=== PATIENT | female | born 1955 | race Caucasian/White ===

== ENCOUNTER → 2021-03-28 13:00 | Outpatient (CLI) | payer MEDICARE, OTHER, SELFPAY ==
[2021-03-28 17:59] LABS: COVID19 -Nasal RAPID Negative (Negative)
== END ==
PROVIDERS: Family Provider Family Medicine; PCP Family Medicine; Visit Provider Nurse Practitioner Family
DX: Z20.822 Contact with and (suspected) exposure to COVID-19 (principal)
CPT/HCPCS: 87635; C9803

== ENCOUNTER 2021-03-29 05:51 | Day surgery (SDC) | payer MEDICARE, OTHER, SELFPAY ==
[2021-03-23 10:00] VITALS: BMI 33.3
[2021-03-29] VITALS (15 sets, daily range): BP systolic 85–151; BP diastolic 55–83; PULSE 54–98; RESP 10–20; TEMP 36.3–37; O2SAT 95–100; BMI 33.3
--- NOTE | 2021-03-29 | DI.RAD.S_ITS ---
PROCEDURE: XR HIP W PEL IF DONE RT 2V INDICATIONS: RIGHT ANTERIOR HIP TECHNIQUE: AP pelvis and lateral view of the right hip acquired. COMPARISON: None. FINDINGS: Intraoperative fluoroscopic view demonstrates right hip replacement. IMPRESSION: Right hip replacement. Dictated by: Vineet Joyce M.D. on 03/29/2021 at 15:38 Approved by: Vineet Joyce M.D. on 03/29/2021 at 15:39
--- NOTE | 2021-03-29 06:00 | DI.RAD.S_ITS ---
PROCEDURE: XR HIP W PEL IF DONE RT 2V INDICATIONS: MARIA A TECHNIQUE: AP pelvis and lateral view of the left hip acquired. COMPARISON: [facility], CR, XR HIP W PEL IF DONE RT 2V, 03/29/2021, 11:37. [facility], CR, XR PELVIS WITH LATERAL HIP RIGHT, 02/24/2021, 14:03. FINDINGS: Bones: Patient is status post right total hip arthroplasty, with hardware components in expected positions. The hip joint appears congruent. The visualized bony structures appear intact. Soft tissues: Overlying postoperative changes are noted. No suspicious soft tissue densities. IMPRESSION: Status post right hip arthroplasty with expected postoperative findings. Dictated by: Tha Anderson M.D. on 03/29/2021 at 13:33 Approved by: Tha Anderson M.D. on 03/29/2021 at 13:34
[2021-03-29] MEDS: CELECOXIB 200 MG CAPSULE PO (06:55)
[2021-03-29] MEDS: PREGABALIN 75 MG CAPSULE PO (06:55)
[2021-03-29] MEDS: LACTATED RINGERS 1,000 ML 42 ML IV ×2 (07:03→09:52)
[2021-03-29] MEDS: VANCOMYCIN 1,000 MG/200 ML PIGGYBACK 200 MG IV (08:21)
[2021-03-29] MEDS: MIDAZOLAM 2 MG/2 ML VIAL IV (08:44)
--- NOTE | 2021-03-29 08:46 | PM.HP.1 ---
History of Present Illness History of Present Illness Date Patient Seen: 03/29/21 Time Patient Seen: 08:30 Chief complaint: RIGHT TOTAL HIP ARTHROPLASTY *OPB* Narrative: Incapacitating ongoing right hip pain. No other change in her history. She had a minor rash on her ankle which is completely resolved her PCP said it was dry skin. Patient History Medical History Anxiety Asthma Depression Elevated cholesterol Osteoarthritis Panic attacks Rash (02/2021) Surgical History History of 2 sections Family & Social History Social History: household members none Prior Living Arrangements House Safety & Behavioral: Feels Safe in Current Yes Environment Been Physically Hurt or No Threatened By a Person Suicidal Ideation Description None Suicide Plan Description No Plan Tobacco & Substance use: Smoking Status Never smoker alcohol intake current alcohol intake frequency holiday/special occasion Substance Use Type does not use Meds Home Medications and Allergies Home Medications Medication Instructions Recorded Confirmed Type acetaminophen 500 mg tablet 500 mg PO Q4H PRN 03/23/21 03/29/21 History (Acetaminophen Extra Strength) albuterol sulfate 90 mcg/actuation 1 - 2 inh INHALATION BEDTIME 03/23/21 03/29/21 History aerosol inhaler ibuprofen 200 mg tablet 200 mg PO Q4-6H PRN 03/23/21 03/29/21 History Allergies Allergy/AdvReac Type Severity Reaction Status Date / Time metal Allergy Severe Snaps on Uncoded 03/23/21 10:09 pants cause rash, oozing Review of Systems Review of Systems Narrative: No medical issues ongoing hip pain. Exam Vital Signs (past 8 hours): - 03/29/21 06:47 Temperature 97.4 F L Pulse Rate 69 Respiratory Rate 20 Blood Pressure 151/83 H Pulse Oximetry 97 Oxygen Delivery Method Room Air Narrative Exam Narrative: HEENT is benign lungs are clear cor regular rate and rhythm right hip restricted range of motion severe pain with attempted range of motion right hip. Abdomen is soft and benign, neurologically intact distally, skin intact, skin calf soft Objective Labs Labs: Severe right hip osteoarthritis with marked joint space narrowing Assessment & Plan Assessment and plan (1) Hip arthritis: Status: Acute (2) S/P total hip arthroplasty: Status: Acute Assessment & Plan narrative: Severe right hip osteoarthritis. Plan is for right total hip arthroplasty. Procedure alternatives risks benefits and complications reviewed. Time Spent With Patient Time with patient: less than 30 minutes Critical Care time: I spent a total of [] minutes of critical care time on this patient's care today; this time is exclusive of procedural time.
--- NOTE | 2021-03-29 08:52 | P.OP_ITS ---
Operative Date/Time/Diagnoses Date of procedure: 03/29/21 Time of procedure: 09:00 Pre-op diagnosis: Severe right hip osteoarthritis Post-op diagnosis: same Procedure & Clinicians Procedure: Right total hip arthroplasty anterior approach Same procedure as scheduled: Yes Indications: The patient has had progressively worsening right hip pain with radiographic changes consistent with arthritis. Non-operative management has failed and the patient has requested total hip replacement. The risks, benefits and alternatives to surgery were discussed with the patient prior to proceeding. Risks discussed included, but were not limited to, failure to relieve pain, leg length discrepancy, dislocation, stiffness, infection, nerve damage, deep venous thrombosis, pulmonary embolism, stroke, coma, heart attack, permanent paralysis and , as well as the potential need for eventual revision of the prosthetic. Surgeon: Cihka Michael Fittings Tightener: Samia Chiu Anesthesia Type: General and Spinal Operative Notes Findings: Severe right hip osteoarthritis Closure Type: primary Specimen(s): none sent Prosthetic devices, grafts, tissues, transplants, or devices: [employer] anthology standard offset size 5, 52 mm cup, neutral poly liner, 16.5 x 20 mm screw, 36 by -3 Oxinium head Estimated Blood Loss (mL): 250 Blood products transfused: none Procedure in detail: The patient was brought to the operating room. Patient was carefully positioned in the supine position. Time-out was performed and antibiotics were given. Anesthesia was induced. She was positioned in the on the table in order to allow hyperextension of the hip. The right lower extremity was prepped and draped in a standard sterile fashion. An anterior right hip incision was made 1 fingerbreadth lateral to the anterior superior iliac spine and extended distally towards the greater trochanter. Dissection was carried out through skin and subcutaneous tissues. Superficial hemostasis was achieved. The fascia over the tensor fascia elen was defined and incised with a knife. Two Allis clamps were used to grasp the fascia. Tensor fascia elen was retracted laterally. A gelpi retractor was placed. Dissection was carried out down along the neck. The circumflex vessels were carefully identified and cauterized with the Aqua Mantis. There was good visualization of the femoral neck. A Cobra was placed superior to the neck and the gluteus fibers were carefully stripped from that superior aspect of the capsule. A 2nd retractor was placed along the inferior aspect of the neck. The rectus insertion along the capsule was partially released. A 3rd retractor that was then gently placed over the rim of the acetabulum under the rectus. Capsule was carefully incised and released from the intertrochanteric line circumferentially superior to the mid sagittal line and inferiorly to the mid sagittal line until the lesser trochanter was palpable. A tag stitch was placed both in the superior and inferior limb of the capsular insertion. Along the acetabulum capsule was also released up to the mid sagittal 12:00 position. A portion of the labrum was resected. A saw was used to perform an osteotomy at the level of the intertrochanteric line and the junction of the superior femoral neck leaving approximately 1 finger breath of residual inferior neck above the lesser trochanter. A 2nd cut was made along the femoral neck at the base of the head and a napkin ring of neck was removed. Corkscrew was placed in the femoral head and the head was removed without difficulty. Retractors were then repositioned around the acetabulum. Residual labrum was resected and additional osteophytes were removed. A reamer that was 4 mm below the templated size was placed by hand in the acetabulum and it was reamed to centralize the acetabulum. It was then reamed up to 2 under the templated size and fluoroscopy was brought in to confirm the position of the reaming and depth of reaming. I reamed 1 under the anticipated size. A trial cup was placed and noted that it was appropriately sized and fluoroscopy confirmed position and depth. The component was open and inserted without difficulty fluoroscopic imaging was used to confirm that the cup had been adequately seated and was well positioned. It was further stabilized with a screw. Neutral poly liner was placed. The cup was tested and noted to be stable. Attention was then directed to the femur. The femur was gently hyperextended additional capsular release was performed as needed in order to allow adequate visualization of the proximal femur with elevation of the femur. Patient was placed in a hyperextended slightly adducted position with maximum external rotation. Box osteotome was used to check for any residual neck as well as sclerotic bone along the trochanter. [place] pepper was placed in the femur. Additional broaching was performed. Canal finder was used to determine the alignment of the canal and position. Size 1 broach was placed. The canal was then appropriately broached up to the templated size as long as there was adequate stability of the broach and serial advancement of the broach without excessive impingement. Specific attention was directed at avoiding varus attempting to direct the distal aspect of the broach more anteriorly and avoiding excessive anteversion. Trial reduction showed acceptable range of motion, good stability, no posterior impingement, mormon of leg length and appropriate lateral shuck. I also hyperflexed the hip and checked that there was no impingement anteriorly and there was good stability with flexion, adduction and internal rotation. Marcaine and Exparel were injected. The stem was placed without difficulty. Repeat trial reduction and x-ray showed acceptable overall position, length, and no evidence of the femoral fracture. Final head was placed. Wound was meticulously irrigated with normal saline. The hip was reduced and additional Exparel and Marcaine were injected. The capsule was closed with interrupted nonabsorbable sutures. The fascia of the tensor was closed with interrupted and running Vicryl. No drain was placed. Any tensor fascia elen muscle that appeared to be contused or injured which was a minimal amount was carefully resected. Capsule around the tensor was injected with Exparel and Marcaine. The skin was closed with barbed stitches for the subcutaneous tissue and skin. We also used surgical glue. The wound was dressed sterilely. Brief Betadine soak was also used and was meticulously irrigated with normal saline. Patient was transferred to recovery room in satisfactory condition. Complications: none Post-operative Condition: stable Disposition: Acute Care Plan for aftercare: The patient will be maintained on a standard total hip replacement protocol with weight bearing as tolerated and anterior hip precautions. The patient will receive Aspirin and sequential compression devices for DVT prophylaxis. The patient will be discharged home when safe for the home environment.
[2021-03-29] MEDS: CEFAZOLIN 2 GM/20 ML SYRINGE IV ×2 (09:09→17:13)
[2021-03-29] MEDS: TRANEXAMIC ACID 1,000 MG VIAL 2000 MG INJ ×2 (09:12→11:45)
[2021-03-29] MEDS: BUPIVACAINE LIPOSOME 266 MG/20 ML VIAL INJ (09:45)
[2021-03-29] MEDS: BUPIVACAINE 0.25% (PF) 60 ML, EPINEPHrine 0.3 MG INJ (09:46)
[2021-03-29] MEDS: SODIUM CHLORIDE IRRIG SOLUTION 250 ML, POVIDONE-IODINE SPONGE STICKS 1 APPLIC IRR (09:46)
--- NOTE | 2021-03-29 09:55 | SUR.OPER ---
Addendum entered by Amanda Lanza R.N. 03/29/21 12:24: Bilateral Hearing aids remained in patient ears, seen by COMPUTER ANIMATOR. Addendum entered by Amanda Lanza R.N. 03/29/21 10:00: Patients glasses placed in [facility] designated glass pouch and placed in patients belongings bag in pre-op. Bilateral Hearing Aids left in patients ears per Anesthesia. Original Note: Patient supine on padded [place] table, head on pillow, one arm on padded arm board at <90, other arm padded and secured with tape across patient's chest, both legs secured in padded traction boots and positioned per surgeon, bilateral feet/ankles/lower leg wrapped with cast padding and coban then placed in padded traction boots, padded post at patient's groin, pressure points checked and padded.
[2021-03-29] MEDS: fentaNYL 100 MCG/2 ML INJ IV (12:28)
[2021-03-29] MEDS: LACTATED RINGERS 1,000 ML 125 ML IV ×2 (13:40→22:12)
[2021-03-29] MEDS: IBUPROFEN 400 MG TABLET PO ×3 (13:56→20:25)
[2021-03-29] MEDS: ONDANSETRON 4 MG/2 ML INJ IV (13:56)
[2021-03-29] MEDS: ACETAMINOPHEN 325 MG TABLET 650 MG PO ×2 (14:15→20:26)
--- NOTE | 2021-03-29 14:25 | PT.IIE ---
Current Diagnoses Unilateral primary osteoarthritis, unspecified hip (03/29/21) Unilateral primary osteoarthritis, right hip (03/29/21) Presence of unspecified artificial hip joint (03/29/21) Surgery Performed Operation Date: 03/29/21 07:45 Actual Procedures p Total Hip Arthroplasty/Anterior Approach(Right) - Chika Michael MD Medical History (Last Reviewed 03/29/21 @ 08:48 by Chika Michael MD) Anxiety Asthma Depression Elevated cholesterol Osteoarthritis Panic attacks Rash (02/2021) Physical Therapy Inpatient Evaluation/Re-Eval M1 PT/OT-IP Prior Functional Status Start: 03/29/21 15:24 Freq: NEEDED Status: Active Protocol: Document 03/29/21 14:25 AB (Rec: 03/29/21 15:39 AB [id number]) Medical Review Prior Functional Status Medical History Reviewed Yes Communication able to make needs know; needs time to respond to questions and follow instructions Mobility and Gait pt stated that she is modified independent with all mobilities and ambulation using SPC Social History Household Members none Living Arrangements House Number of Floors (Floors) One Floor Number of Stairs To Enter/Railing? 3 steps without rails to enter the house Home Environment Standard Height Toilet,Tub/ Shower Home Equipment Front Wheel Walker,Straight Cane,Shower Seat without Backrest,Hand Held Shower,Grab Bars In Shower Additional Social History Comment pt's 2 daughter will be staying with pt to assist her upon d/c M2 PT-IP Current Condition Start: 03/29/21 15:24 Freq: NEEDED Status: Active Protocol: Document 03/29/21 14:25 AB (Rec: 03/29/21 15:39 AB [id number]) Physical Therapy Current Condition Current Condition Evaluation Date 03/29/21 Treatment Diagnosis s/p R MARIA A anterior approach; difficulty in walking Onset Date 03/29/21 M3 PT-IP Subjective Start: 03/29/21 15:24 Freq: NEEDED Status: Active Protocol: Document 03/29/21 14:25 AB (Rec: 03/29/21 15:39 AB [id number]) Subjective Physical Therapy Visit Type Type Initial Evaluation Visit Start Time 14:25 Visit Stop Time 15:10 Total Visit Minutes 45 Number of WEED BURNER Visits 0 Physical Therapy Visit Comments Patient Comments pt is agreeable to do PT Therapy Pain Assessment Pain When Pain Assessed At Rest Pain Present Pain Present Pain Reported Location Right Hip Intensity 4 Scale Used Numeric (0 - 10) Pain Management Techniques Apply Cold,Distraction, Modification of Treatment,Re- positioning,Timing of Activity with Medications M4 PT-IP Mobility and Gait Start: 03/29/21 15:24 Freq: NEEDED Status: Active Protocol: Document 03/29/21 14:25 AB (Rec: 03/29/21 15:39 AB [id number]) PT-Bed Mobility Assessment Supine to Sit Supine to Sit Moderate Assistance,1 Person Assistance Sit to Supine Sit to Supine Moderate Assistance,1 Person Assistance Scooting Scooting to Edge of Bed Moderate Assistance PT-Transfer Assessment Sit to and From Stand Sit to and from Stand Moderate Assistance,1 Person Assistance,Use of Upper Extremities Equipment Transfer Assistive Device Gait Belt,Front Wheeled Walker Orthotic/Prosthetic Devices or Brace: No Comments Mobility Comments educated pt on anterior hip precautions. daughter in room . BP in supine: 132/67. pt completed supine to sit mod A and cues. able to sit on EOB SBA. BP in sittin/65. pt sat for a few minutes. pt with delayed response to questions and instructions. BP checked again: 121/67. completed sit to stand mod A and cues. pt requiring mod A for static standing balance using FWW. presents with increase L knee flexion during standing and increase UE weight bearing and more weight shifted to the L. cued pt for R quads activation. able to take one step forward but pt has difficulty following directions. instructed pt to step back and side steps towards HOB and completed mod to max A and max cues using fWW. pt completed sit to supine mod A with LE elevation . positioned pt in bed. call light and table placed within reach. BP checked: 100/65. caregiver training set up for tomorrow at ~ 1030 am. Gait Assessment Gait Gait Assistance Required: Moderate Assistance,Maximum Assistance,1 Person Assist Distance (Feet) 3 Able to Maintain Weight Bearing Status No During Gait Assistive Devices Assistive Device Gait Belt,Front Wheeled Walker Orthotic/Prosthetic Devices or Brace: No Gait Deviations General Gait Pattern Decreased Stride Length, Decreased Feet Clearance Factors Limiting Gait Function Factors Limiting Gait Function Decreased Activity Tolerance, Decreased Strength,Difficulty Following Directions,Limited Range of Motion,Pain,Poor Balance,Poor Safety Awareness Comments Gait Comments pls see mobility section for details PT-Balance Assessment Sitting Balance and Reactions Dynamic Sitting Balance Ability Fair Standing Balance and Reactions Static Standing Balance Ability Poor Dynamic Standing Balance Ability Poor Device Used FWW M5 PT-IP Objective Assessments Start: 03/29/21 15:24 Freq: NEEDED Status: Active Protocol: Document 03/29/21 14:25 AB (Rec: 03/29/21 15:39 AB [id number]) Orientation Orientation/Cognition Level of Alertness Alert Orientation Name,Place,Situation Safety Awareness Decreased Safety Awareness Strength Lower Extremity Strength Assessment Right Impaired Hip 3-/5 Knee 3+/5 Coordination Assessment Gross Coordination Gross Coordination WNL Sensation Assessment Sensation Gross Sensation WNL Muscle Tone Muscle Tone WNL Yes M6 PT-IP Treatment Start: 03/29/21 15:24 Freq: NEEDED Status: Active Protocol: Document 03/29/21 14:25 AB (Rec: 03/29/21 15:39 AB [id number]) Physical Therapy Treatment Education Education Provided Precautions,Weight Bearing Status,Post-Op Packet,Safety M7 PT-IP Assessment and Plan Start: 03/29/21 15:24 Freq: NEEDED Status: Active Protocol: Document 03/29/21 14:25 AB (Rec: 03/29/21 15:39 AB [id number]) PT Summary Assessment and Plan Potential Rehabilitation Potential Good Status of Condition at Evaluation Evolving Summary Impairments Pain,ROM,Strength,Balance, Coordination,Sensation,Tone, Cognition,Bed Mobility, Transfers,Gait,Activity Tolerance Assessment Summary pt requiring mod to max A with mobility using FWW and unable to tolerate much activity with decrease in BP from 132/ 67 to 100/65. pt also has delayed responses to instructions affecting safety. caregiver training set up for tomorrow with daughter coming at ~ 1030. will continue to assess progress. pt also need to complete stair climbing training prior to d/ c. Goals Bed Mobility Goal Standby Assistance Transfer Goal Standby Assistance,Front Wheeled Walker Gait Goal Standby Assistance,Front Wheel Walker Gait Distance 200 Other Goals up/down 3 steps SPC/DEFENCE INTELLIGENCE ANALYST min A Days to Meet Goals 5 Frequency of Treatment Frequency Of Treatment Twice a Day Treatment Plan Physical Therapy Treatment Plan Bed Mobility Training,Transfer Training,Gait Training, Therapeutic Exercise,Balance Retraining,Post Op Education, Discharge Planning,Hot or Cold Pack,Neuromuscular Re-ed, Coordination Retraining,Manual Therapy Precautions Anterior Hip Precautions No Hip Extension,No Hip External Rotation Weight Bearing Status Weight Bearing Status Weight Bear as Tolerated Allowed Weight Bearing Amount (enter % RLE WBAT or #) (%) Recommendations To Nursing Amount of Assist Needed 2 Person Assist Discharge Recommendations PT Discharge Recommendations Home with 06/11 Assist Available,Home Health Transportation Needs at Discharge Private Vehicle,Wheelchair/ Cabulance
[2021-03-29] MEDS: OXYCODONE IR 5 MG TABLET PO ×2 (14:54→22:15)
[2021-03-29] MEDS: DOCUSATE 100 MG CAPSULE PO (20:25)
[2021-03-29] MEDS: ASPIRIN EC 81 MG TABLET PO (20:25)
[2021-03-30] VITALS: BP 102/46; PULSE 68; RESP 18; O2SAT 96
[2021-03-30] MEDS: CEFAZOLIN 2 GM/20 ML SYRINGE IV (00:04)
[2021-03-30] MEDS: IBUPROFEN 400 MG TABLET PO ×3 (00:05→10:10)
[2021-03-30] MEDS: OXYCODONE IR 5 MG TABLET PO ×2 (06:38→10:10)
[2021-03-30] MEDS: ONDANSETRON 4 MG ODT PO (06:38)
[2021-03-30 06:47] LABS: Hematocrit 30.2 % (36-46); Hemoglobin 10.5 g/dL (12.0-16.0)
[2021-03-30 06:48] VITALS: BP 103/59; PULSE 72; RESP 20; TEMP 36.6; O2SAT 96
--- NOTE | 2021-03-30 08:53 | PC.NURSE ---
Assess- Patient is alert and oriented x3, she has an aquacel dressing to her anterior hip that is cdi. Patient is a one person assist with walker to get up. She denies pain at this time. CMS wnl and patient is able to wiggle her toes and do ankle waves. CMS wnl, sitting up in the chair and eating breakfast.
[2021-03-30 09:14] VITALS: BP 117/61; PULSE 84; RESP 20; TEMP 36.6; O2SAT 95
--- NOTE | 2021-03-30 09:37 | CM.DANOTE ---
Patient is a 65 yo female who was admitted on 03/29/21 for RTHA. Pt has M[employer] and [employer] for insurance and her PCP is Leonides Hines. EMR was reviewed. Per Ortho MD, pt tolerated procedure well and likely can d/c home later today after further PT. Per PT yesterday, recommending safe d/c home with Dtrs 24/7 and HH. SW met bedside with pt and explained role and she confirms that she lives in [place] alone and is active and independent at baseline and has even been attempting the ladder to get leaves out of her gutters. Pt drives and denies any hx of HH or SNF. Pt confirms that she has two local adult Dtrs who will stay with pt after d/c for 24/7 assist and transport. SW discussed HH services and frequency and pt confirms that she has outpt PT set up already and it is near her home and feels her vehicle will be easy to get in and out of and preference is outpt PT at d/c. Per PT, pt's Dtr will participate in CG training for stairs and confirm pt safe for d/c home today. Plan: SW to follow for plan of home with two adult Dtrs to stay 24/7 and outpt PT today. KINGS Brady Discharge Planning/Care Management CM Discharge Assessment Start: 03/30/21 09:36 Freq: Status: Active Protocol: Document 03/30/21 09:36 BF (Rec: 03/30/21 09:37 BF [id number]) Discharge Planning Assessment Assigned Trash Truck Driver KINGS Howe DPOA/Assigned Designee Name Dtrs Advance Directives? No Advance Directives on File No History Provided By Patient,Medical Record Has Patient been admitted in last 30 No days? Prior Living Arrangements House Household Members none Type of transporation used prior to Drives own vehicle admit Independent with ADL's Yes Is patient alert and oriented? Yes Caregiver for Another No Community Services used prior to Physical Therapy admission: Patient/Family Preference OP PT Therapy Barriers to Discharge No Discharge Plan Home Community Services Physical Therapy Transportation Arrangement Two Dtrs available to transport home today Referrals Initiated None needed Whiteboard Updated in Patient Room with Yes name and ext. # of Trash Truck Driver Review Status In Process Please Provide Date Initial DC 03/30/21 Assessment Was Performed Next Review Type Continued Stay Review Pre-Anesthesia Assessment Start: 03/23/21 10:00 Freq: Status: Complete Protocol: Document 03/23/21 10:00 [facility] (Rec: 03/23/21 10:29 CAB [id number]) Pre-Anesthesia Assessment Diagnostic Results BMP/CMP,CBC,EKG Comment Outside labs/EKGs scanned, COVID screen @ [facility] 03/28/21 Primary Care Provider Leonides Hines Seen Specialist in Last 12 Months Yes Specialist Seen Orthopedist Primary Language Nepali Table Operator Required No Height 157.48 cm Weight 82.554 kg Body Mass Index (BMI) 33.3 Hearing Ability Hard of Hearing,Use of Hearing Aid Visual Assist Contacts,Glasses Dentition Type Teeth, Natural Present Barriers to Learning Auditory Hx Anesthesia Reactions Yes: Spinal w/ caused shortness of breath Hx Family Anesthesia Reaction Yes: Sister-required intubation w/ Hx Malignant Hyperthermia No Hx Blood Transfusions No Anesthesia Review Requested No alcohol intake current alcohol intake frequency holidays/special occasions only Smoking Status Never smoker Substance Use Type does not use Pain Present Pain Reported Musculoskeletal Symptoms Abnormal Gait,Back Pain, Difficulty Walking,Joint Pain History of Falling (Recent or History of No ) Patient is completely paralyzed or No completely immobile Prosthesis or Orthotic Device Cane Mental Status Oriented to own ability Is patient on oxygen? No Does patient have FERRARI/SOB Yes: r/t Asthma Hx Sleep Apnea No Currently Taking a Beta Rose No Hx Chest Pain No Hx SOB Yes: r/t Asthma Hx Syncope or Dizziness No Anti-Coagulant Therapy No Has a Assembler Truck Trailer No Cardiac Testing No Hx Pacemaker/ICD No Pacemaker Rep Required? No Cardiac Clearance Received Not Applicable Diet Type At Home Regular,Low Carb dysphagia No Urinary Catheter Present No Hx Urinary Self Catheterization No Diabetes No Patient No Lactating No Hx Drug Resistant Organism No Presence of External or Internal Medical No Devices Have you had any close contact with No someone diagnosed with COVID-19? Received a COVID vaccine? Yes Received all doses? Yes Marital Status Lives With none Prior Living Arrangements House Number of Floors (Floors) One Floor Support System Child/Children Does the Patient Have Assistance After Yes: Daughters will assist Surgery with care at MD Patient Discharge Plan Description Return Home Comment Pt advised overnight length of stay per surgeon Feels Safe in Current Environment Yes Been Physically Hurt or Threatened By a No Person in Current Environment Do you have thoughts of harming yourself None or others? Are you currently considering suicide? No Do you have a plan to hurt yourself or No Plan others? Do You Have Any Spiritual Beliefs That No May Affect Your HC Choices? Do You Have Any Cultural Practices That No May Affect Your HC Choices? Comment Demetrio Who Can We Speak to About Patient's Care Family, friends Identifying Code for Release of Patient Declilnes to issue Information Health Care Proxy/Next of Kin Mariann (daughter) Health Care Proxy Emergency Contact Name Steph (daughter) Emergency Contact Advance Directives? No Power of Shipping And Receiving No PAC Instructions Do not shave/clip surgical site,Durable medical equipment ,Medications to take/avoid, Nasal antibiotic,No ETOH/ petroleum product on skin DOS, NPO,Pre-surgical wash,Sensory aids,Sturdy shoes/comfortable clothes,Do not bring valuables and remove jewelry
[2021-03-30] MEDS: DOCUSATE 100 MG CAPSULE PO (10:10)
[2021-03-30] MEDS: ACETAMINOPHEN 325 MG TABLET 650 MG PO (10:10)
[2021-03-30] MEDS: ASPIRIN EC 81 MG TABLET PO (10:10)
--- NOTE | 2021-03-30 10:51 | PT.IPTN ---
Current Diagnoses Unilateral primary osteoarthritis, unspecified hip (03/29/21) Unilateral primary osteoarthritis, right hip (03/29/21) Presence of unspecified artificial hip joint (03/29/21) Surgery Performed Operation Date: 03/29/21 07:45 Actual Procedures p Total Hip Arthroplasty/Anterior Approach(Right) - Chika Michael MD Physical Therapy Treatment Note M2 PT-IP Current Condition Start: 03/29/21 15:24 Freq: NEEDED Status: Active Protocol: Document 03/30/21 10:24 SP (Rec: 03/30/21 13:20 SP [id number]) Physical Therapy Current Condition Current Condition Evaluation Date 03/29/21 Treatment Diagnosis s/p R MARIA A anterior approach; difficulty in walking Onset Date 03/29/21 M3 PT-IP Subjective Start: 03/29/21 15:24 Freq: NEEDED Status: Active Protocol: Document 03/30/21 10:24 SP (Rec: 03/30/21 13:20 SP [id number]) Subjective Physical Therapy Visit Type Type Treatment Note Visit Start Time 10:24 Visit Stop Time 10:51 Total Visit Minutes 27 Notes Daughter present completed caregiver training with assist needed throughout tx. Vitals taken during tx: sit in chair: BP 102/59 HR 79, SaO2 91% on RA stand: BP95/52, HR 104 bpm- little nausea but felt wanted to progress gait/ stairs. post mobility: 93/59 HR 76 nonsymptomatic Number of ERP IMPLEMENTATION CONSULTANT Visits 1 Physical Therapy Visit Comments Patient Comments Pt agreeable to assessing further gait and stairs with daughter. Patient Goals Return home with 2 daughters to assist her. Therapy Pain Assessment Pain Present Pain Present Pain Reported Location Right Hip Intensity 4 Scale Used just premedication before tx but willing to work with therapy Description With Movement Pain Behaviors Facial Grimacing Pain Management Techniques Distraction,Modification of Treatment,Re-positioning, Timing of Activity with Medications M4 PT-IP Mobility and Gait Start: 03/29/21 15:24 Freq: NEEDED Status: Active Protocol: Document 03/30/21 10:24 SP (Rec: 03/30/21 13:20 SP [id number]) PT-Transfer Assessment Sit to and From Stand Sit to and from Stand Standby Assistance,Contact Guard Assistance,Use of Upper Extremities Equipment Transfer Assistive Device Gait Belt,Front Wheeled Walker Orthotic/Prosthetic Devices or Brace: No Transfers Transfer Destination Chair,Wheelchair Transfer Technique Stand Step Pivot Transfer Ability Level of Assist Standby Assistance,Use of Upper Extremities Comments Mobility Comments Pt seated in chair when arrived, daughter in room. Caregiver training education on donning gait belt seated, completed. Sit>stand CGA, cued proper hand placement push from chair. Initially nausious coming to standing but brief stand felt better and progressed gait w/ FWW. Ambulated further distance with FWW step to patterning progressed to semi tandem stepping chair in room to stairs lead RLE, extra time required due to decreased strength and activity tolerance with 2 brief stop stand rests SBA, good carry over post cues for marching steps during turns. Completed stairs SPC in LUE and WELT SEWER support Min A from daughter good patterning leading LLE asc/ desc 3 stairs, slow and stable, no LOB. Pt tired and requested sit and assist back to room via w/c. SPT w/FWW and stand>sit with good HP. SPT w /c > chair once inroom sBA w/ FWW. stand>sit sBA good HP and reposition RLE out in front post cues for increased comfort as needed. Assisted pt elevate BLE. She had call light and all needs in reach with daughter inroom before left. Pt stated has outpt therapy already set up. ERP IMPLEMENTATION CONSULTANT recommended assess and log BPs couple times a day for safety awareness and be sure time acclimate position changes for safety lower BP this tx. ERP IMPLEMENTATION CONSULTANT notified nursing of vitals. Gait Assessment Gait Gait Assistance Required: Standby Assistance Distance (Feet) 100 Able to Maintain Weight Bearing Status Yes During Gait Assistive Devices Assistive Device Gait Belt,Front Wheeled Walker Orthotic/Prosthetic Devices or Brace: No Gait Deviations General Gait Pattern Antalgic,Decreased Stride Length,Decreased Feet Clearance,Step-to Gait Factors Limiting Gait Function Factors Limiting Gait Function Decreased Activity Tolerance, Decreased Strength,Limited Range of Motion,Pain Comments Gait Comments See mobility comments Stair Climbing Assessment Evaluation Level of Assist On Stairs Minimal Assistance,1 Person Assistance Devices Stair Climbing Assistive Devices Straight Cane Technique/Endurance Stair Climbing Direction Ascend and Descend Stair Climbing Technique Step to Step Number of Steps Climbed 3 Stair Climbing Set # Repetitions (reps) 1 Comments Stair Climbing Comments see mobility comments PT-Balance Assessment Sitting Balance and Reactions Static Sitting Balance Ability Normal Dynamic Sitting Balance Ability Good Standing Balance and Reactions Static Standing Balance Ability Good Dynamic Standing Balance Ability Fair Device Used FWW M5 PT-IP Objective Assessments Start: 03/29/21 15:24 Freq: NEEDED Status: Active Protocol: Document 03/29/21 14:25 AB (Rec: 03/29/21 15:39 AB [id number]) Orientation Orientation/Cognition Level of Alertness Alert Orientation Name,Place,Situation Safety Awareness Decreased Safety Awareness Strength Lower Extremity Strength Assessment Right Impaired Hip 3-/5 Knee 3+/5 Coordination Assessment Gross Coordination Gross Coordination WNL Sensation Assessment Sensation Gross Sensation WNL Muscle Tone Muscle Tone WNL Yes M6 PT-IP Treatment Start: 03/29/21 15:24 Freq: NEEDED Status: Active Protocol: Document 03/30/21 10:24 SP (Rec: 03/30/21 13:20 SP [id number]) Physical Therapy Treatment Exercises Exercises Ankle Pumps,Gluteal Sets,Quad Sets,Seated Knee Flexion/ Extension Education Education Provided Precautions,Weight Bearing Status,Post-Op Packet,Safety Other Treatments Other Treatment Performed Educated breath and core facilition at times to assist with pain during mobility, continue ROM as can for mobility and strength. M7 PT-IP Assessment and Plan Start: 03/29/21 15:24 Freq: NEEDED Status: Active Protocol: Document 03/30/21 10:24 SP (Rec: 03/30/21 13:20 SP [id number]) PT Summary Assessment and Plan Potential Rehabilitation Potential Good Status of Condition at Evaluation Evolving Summary Impairments Pain,ROM,Strength,Balance, Coordination,Sensation,Tone, Cognition,Bed Mobility, Transfers,Gait,Activity Tolerance Progress Towards Goals Progressing Toward Goals,Slow Progress due to Pain,Slow Progress due to Activity Tolerance Assessment Summary Pt CGA>SBA during transfers and gait approx 100 ft using FWW, Min A 3 step stair mgt SPC LUE/WELT SEWER daughter on R assimulate no HR support at home, stable. Pt is ok to return home with family 06/11 assist available when medically cleared. Goals Bed Mobility Goal Standby Assistance Transfer Goal Standby Assistance,Front Wheeled Walker Gait Goal Standby Assistance,Front Wheel Walker Gait Distance 200 Other Goals up/down 3 steps SPC/WELT SEWER min A Days to Meet Goals 5 Frequency of Treatment Frequency Of Treatment Twice a Day Treatment Plan Physical Therapy Treatment Plan Bed Mobility Training,Transfer Training,Gait Training, Therapeutic Exercise,Balance Retraining,Post Op Education, Discharge Planning,Hot or Cold Pack,Neuromuscular Re-ed, Coordination Retraining,Manual Therapy Other Recommendations and Next Treatment further distance gait, Post op Focus ther ex. Precautions Anterior Hip Precautions No Hip Extension,No Hip External Rotation Other Precautions Good recall to post op precautions, education on carryover to prevent hip ER during turn to R, take small marching steps during pivot turns, good carryover during tx. Weight Bearing Status Weight Bearing Status Weight Bear as Tolerated Allowed Weight Bearing Amount (enter % RLE WBAT or #) (%) Recommendations To Nursing Amount of Assist Needed Standby Assistance,1 Person Assist Discharge Recommendations PT Discharge Recommendations Home with 06/11 Assist Available,Outpatient PT Transportation Needs at Discharge Private Vehicle,Wheelchair/ Cabulance
--- NOTE | 2021-03-30 13:50 | P.DS_ITS ---
History of Present Illness History of Present Illness Date Patient Seen: 03/30/21 Time Patient Seen: 13:50 Chief complaint: Hip pain Narrative: Pain is mild. Denies fever chills. Mild nausea no vomiting. Discharge Providers Provider Discharge Date: 03/30/21 Primary care physician: Leonides Hines MD Consults: 03/29/21 06:00 Consult to Anesthesiology Routine Comment: Consulting Provider: Anesthesiologist Reason for consultation: Regional block for post operative pain control 03/29/21 13:16 Consult to Discharge Planning Routine Comment: Consult to Physical Therapy Evaluate & Treat Comment: Physician Instructions: post op MARIA A protocol Consult to Respiratory Therapy Evaluate & Treat Comment: Physician Instructions: Evaluate and treat Discharge provider: Sav Deng PA-C Summary Hospital Course Discharge Diagnosis: Severe right hip osteoarthritis Hospital Course: Right total hip arthroplasty anterior approach Same procedure as scheduled: Yes Indications: The patient has had progressively worsening right hip pain with radiographic changes consistent with arthritis. Non-operative management has failed and the patient has requested total hip replacement. The risks, benefits and alternatives to surgery were discussed with the patient prior to proceeding. Risks discussed included, but were not limited to, failure to relieve pain, leg length discrepancy, dislocation, stiffness, infection, nerve damage, deep venous thrombosis, pulmonary embolism, stroke, coma, heart attack, permanent paralysis and , as well as the potential need for eventual revision of the prosthetic. Surgeon: Chika Michael Director Of Spa And Guest Experience: Samia Chiu Anesthesia Type: General and Spinal Operative Notes Findings: Severe right hip osteoarthritis Closure Type: primary Specimen(s): none sent Prosthetic devices, grafts, tissues, transplants, or devices: Michael and Nephew anthology standard offset Blood products transfused: none Patient admitted to the hospital for right total hip arthroplasty, anterior approach. Patient taken operating room underwent right total hip arthroplasty March 29, 2021. Patient back in her room recovering well as in stable condition. Exam Vital Signs (past 8 hours): - 03/30/21 06:48 03/30/21 09:14 Temperature 97.9 F 97.9 F Pulse Rate 72 84 Respiratory Rate 20 20 Blood Pressure 103/59 L 117/61 Pulse Oximetry 96 95 Oxygen Delivery Method Room Air Oxygen Flow Rate 0 Narrative Exam Narrative: 65-year-old female in no apparent distress. Dressing is Clean, dry, intact.. Motor functions intact distal bilateral lower extremities. Sensation grossly intact to light touch bilateral lower extremities. Objective Labs Result Diagrams: 03/30/21 06:25 Labs: Laboratory Results - last 24 hr 03/30/21 06:25 Hgb 10.5 L Hct 30.2 L PFSH Medical History Anxiety Asthma Depression Elevated cholesterol Osteoarthritis Panic attacks Rash (02/2021) Surgical History History of 2 sections Social History household members: none Smoking Status: Never smoker alcohol intake: current Discharge Assessment & Plan Assessment and Plan Assessment: Progressing as expected Plan of Treatment: Discharge home in stable condition Discharge Plan Discharge Plan Patient Disposition: Home Discharge orders & Medications Discharge Orders: Discharge (Order); Ordered 03/30/21 Ordered By: Sav Deng Prescriptions: New acetaminophen 325 mg Tablet 650 mg PO TID Qty: 60 0RF aspirin 81 mg Tablet,Delayed Release (Dr/Ec) 81 mg PO BID Qty: 60 0RF docusate sodium 100 mg Capsule 100 mg PO BID Qty: 20 0RF ibuprofen 400 mg Tablet 400 mg PO Q4HR Qty: 60 0RF ondansetron 4 mg Tablet,Disintegrating 4 mg PO Q4HR PRN (Reason: Nausea) Qty: 20 0RF oxycodone 5 mg Tablet 5 mg PO Q3HR PRN (Reason: Pain, Moderate (4-6)) Qty: 60 0RF Continued albuterol sulfate 90 mcg/actuation Hfa Aerosol Inhaler 1 - 2 inh INHALATION BEDTIME 0RF Discontinued acetaminophen [Acetaminophen Extra Strength] 500 mg Tablet 500 mg PO Q4H PRN (Reason: Pain) 0RF ibuprofen 200 mg Tablet 200 mg PO Q4-6H PRN (Reason: Pain) 0RF Follow up/Referrals: Leonides Hines MD [Primary Care Provider] - Chika Michael MD [Physician] - (2 weeks) Diet/Activity/Treatments Diet: Diet as Tolerated Activity: Weight-bearing as tolerated, anterior hip precautions Cold/Heat Therapy: Ice to hip as needed Skin/Wound/Dressing Care Report to your healthcare provider any signs of infection, such as:: chills, fever, increased pain, unusual drainage and unusual redness Dressing: Keep dressing clean and dry Visit Report/Discharge Packet Instructions: DI for Hip Replacement, Oxycodone Stand Alone Forms: Surgery Discharge Discharge Data Primary Care Provider: Leonides Hines Attending Provider: Chika Michael
== END 2021-03-30 13:55 | disposition home or self-care (01) ==
LOC: OR 05:56 → AC 05:58
PROVIDERS: Family Provider Family Medicine; PCP Family Medicine; Referring Provider Family Medicine; Visit Provider Orthopaedic Surgery
PROC: (CPT 27130; principal; 2021-03-29 07:45)
DX: M16.11 Unilateral primary osteoarthritis, right hip (principal); E66.9 Obesity, unspecified; J45.909 Unspecified asthma, uncomplicated; Z68.38 Body mass index [BMI] 38.0-38.9, adult
CPT/HCPCS: 27130; 36415; 73502; 76000; 85014; 85018; 97116; 97162; 97530; C1776; C9290; J0171; J0690; J2250; J2405; J2704; J3010

== ENCOUNTER → 2023-06-11 11:01 | Outpatient (CLI) | payer MEDICARE, OTHER, SELFPAY ==
[2021-03-29 15:00] VITALS: BMI 33.3
[2023-06-11 12:06] LABS: Hemoglobin A1C% w Est Avg Glu 5.2 % (4.0-6.0)
[2023-06-11 12:10] LABS: Add Manual Diff / Slide Review NO; Basophils Absolute Auto 100 /uL (0-100); Basophils Percent Auto 0.9 % (0-2); Eosinophils Absolute Auto 200 /uL (0-450); Eosinophils Percent Auto 3.7 % (2-4); Hematocrit 38.6 % (36-46); Lymphocytes Absolute Auto 1300 /uL (1100-4500); Lymphocytes Percent Auto 19.9 % (25-40); Mean Corpuscular HGB Conc 33.6 % (30-36); Mean Corpuscular Hemoglobin 32.1 PG (26-34); Mean Corpuscular Volume 95.5 fL (80-100); Monocytes Absolute Auto 500 /uL (0-900); Monocytes Percent Auto 7.4 % (3-14); Neutrophils Absolute Auto 4500 /uL (1500-7000); Neutrophils Percent Auto 68.1 % (50-75); Platelet Count 231 X10^3/uL (150-400); Red Blood Cell Count 4.04 X10^6/uL (4.0-5.2); Red Cell Distribution Width 13.6 % (11.6-14.8); White Blood Cell Count 6.6 X10^3/uL (4.5-11.0)
[2023-06-11 12:13] LABS: BUN Creatinine Ratio 33.3 (6-22); Blood Urea Nitrogen 25 mg/dL (7-17); Calcium 9.6 mg/dL (8.4-10.2); Carbon Dioxide 23 mmol/L (22-32); Chloride 105 mmol/L (98-107); Estimated Glomerular Filt Rate > 60 mL/min (>60); Glucose 94 mg/dL (80-110); HEMOLYSIS < 15 (0-50); Potassium 4.4 mmol/L (3.4-5.1); Sodium 137 mmol/L (137-145)
[2023-06-11 12:26] LABS: Appearance Urine UA CLEAR; Bilirubin Urine UA NEGATIVE (NEGATIVE); Color Urine UA YELLOW; Glucose Urine UA NEGATIVE (Negative); Ketones Urine UA NEGATIVE (NEGATIVE); Leukocyte Esterase Urine UA NEGATIVE (NEGATIVE); Nitrite Urine UA NEGATIVE (Negative); Occult Blood Urine UA NEGATIVE (Negative); Protein Urine UA NEGATIVE (Negative); Urobilinogen Urine UA 0.2 E.U./dL (0.2)
== END ==
LOC: LAB 11:06
PROVIDERS: Family Provider Family Medicine; PCP Family Medicine; Referring Provider Orthopaedic Surgery; Visit Provider Orthopaedic Surgery
DX: Z01.818 Encounter for other preprocedural examination (principal); R73.9 Hyperglycemia, unspecified; Z01.812 Encounter for preprocedural laboratory examination; N39.0 Urinary tract infection, site not specified
CPT/HCPCS: 36415; 80048; 81003; 83036; 85025; 93005

== ENCOUNTER 2023-08-21 08:36 | Day surgery (SDC) | payer MEDICARE, OTHER, SELFPAY ==
[2021-03-29 15:00] VITALS: BMI 33.3
[2023-08-14 10:39] VITALS: BMI 33.8
[2023-08-21] VITALS (10 sets, daily range): BP systolic 115–145; BP diastolic 63–80; PULSE 63–81; RESP 13–19; TEMP 35.9–36.8; O2SAT 97–99; BMI 33.8
--- NOTE | 2023-08-21 | DI.RAD.S_ITS ---
PROCEDURE: [id number] W PEL IF PERFORMED INDICATIONS: ANTERIOR LEFT HIP TECHNIQUE: Fluoroscopic guidance utilized for a left total hip arthroplasty placement. COMPARISON: None. FINDINGS: Fluoroscopic images submitted for a left total hip arthroplasty. Please see operative note for further discussion. IMPRESSION: Fluoroscopic guidance. Dictated by: Anselmo Swann M.D. on 08/21/2023 at 16:38 Approved by: Anselmo Swann M.D. on 08/21/2023 at 16:38
--- NOTE | 2023-08-21 06:00 | DI.RAD.S_ITS ---
PROCEDURE: XR HIP W PEL IF DONE LT 2V INDICATIONS: MARIA A TECHNIQUE: AP pelvis and lateral view of the hip acquired. [facility] [place], XR PELVIS WITH BILATERAL LATERAL HIPS, 06/08/2023, 14:11. FINDINGS: Bones: Patient is status post recent left and more remote right total hip arthroplasties. Hardware components are in expected positions. The hip joint appears congruent. The visualized bony structures appear intact. Soft tissues: Overlying postoperative changes are noted. No suspicious soft tissue densities. IMPRESSION: 1. Expected post-operative appearance of the recent left hip arthroplasty. 2. Stable right hip arthroplasty. Approved by: Tha Anderson M.D. on 08/21/2023 at 16:57
[2023-08-21] MEDS: ACETAMINOPHEN 325 MG TABLET 975 MG PO (09:00)
[2023-08-21] MEDS: CELECOXIB 200 MG CAPSULE PO (10:26)
[2023-08-21] MEDS: LACTATED RINGERS 1,000 ML 42 ML IV ×2 (10:57→14:50)
[2023-08-21] MEDS: VANCOMYCIN 1,000 MG/200 ML PIGGYBACK 200 MG IV (12:04)
--- NOTE | 2023-08-21 13:09 | PM.PREOP ---
Pre-operative Note Interval Note History & Physical reviewed/Exam performed by Physician: Yes Changes to H&P: No
--- NOTE | 2023-08-21 13:09 | PM.OP.1 ---
Operative Date/Time/Diagnoses Date of procedure: 08/21/23 Time of procedure: 13:40 Pre-op diagnosis: Left hip OA Post-op diagnosis: same Procedure & Clinicians Procedure: Anterior left total hip arthroplasty Same procedure as scheduled: Yes Indications: The patient has had progressively worsening left hip pain with radiographic changes consistent with arthritis. Non-operative management has failed and the patient has requested total hip replacement. The risks, benefits and alternatives to surgery were discussed with the patient prior to proceeding. Risks discussed included, but were not limited to, failure to relieve pain, leg length discrepancy, dislocation, stiffness, infection, nerve damage, deep venous thrombosis, pulmonary embolism, stroke, coma, heart attack, permanent paralysis and , as well as the potential need for eventual revision of the prosthetic. Surgeon: Chika Michael Executive Assistant To General Counsel: Tori Enriquez Anesthesia Type: General and Spinal Operative Notes Findings: Severe left hip osteoarthritis. Adequate stability, adequate bone Closure Type: primary Specimen(s): none sent Prosthetic devices, grafts, tissues, transplants, or devices: Michael and Nephew 52 mm R3 cup, neutral poly liner, standard offset anthology, 36 by-3 Oxinium head, one 6.5 mm screw Estimated Blood Loss (mL): 250 Blood products transfused: none Procedure in detail: The patient was brought to the operating room. Patient was carefully positioned in the supine position. Time-out was performed and antibiotics were given. Anesthesia was induced. She was positioned in the on the table in order to allow hyperextension of the hip. The right lower extremity was prepped and draped in a standard sterile fashion. An anterior right hip incision was made 1 fingerbreadth lateral to the anterior superior iliac spine and extended distally towards the greater trochanter. Dissection was carried out through skin and subcutaneous tissues. Superficial hemostasis was achieved. The fascia over the tensor fascia elen was defined and incised with a knife. Two Allis clamps were used to grasp the fascia. Tensor fascia elen was retracted laterally. A gelpi retractor was placed. Dissection was carried out down along the neck. The circumflex vessels were carefully identified and cauterized with the Aqua Mantis. A PA was used during the procedure and was essential for intraoperative retraction and safe implantation of the components. There was good visualization of the femoral neck. A Cobra was placed superior to the neck and the gluteus fibers were carefully stripped from that superior aspect of the capsule. A 2nd retractor was placed along the inferior aspect of the neck. The rectus insertion along the capsule was partially released. A 3rd retractor that was then gently placed over the rim of the acetabulum under the rectus. Capsule was carefully incised and released from the intertrochanteric line circumferentially superior to the mid sagittal line and inferiorly to the mid sagittal line until the lesser trochanter was palpable. A tag stitch was placed both in the superior and inferior limb of the capsular insertion. Along the acetabulum capsule was also released up to the mid sagittal 12:00 position. A portion of the labrum was resected. A saw was used to perform an osteotomy at the level of the intertrochanteric line and the junction of the superior femoral neck leaving approximately 1 finger breath of residual inferior neck above the lesser trochanter. A 2nd cut was made along the femoral neck at the base of the head and a napkin ring of neck was removed. Corkscrew was placed in the femoral head and the head was removed without difficulty. Retractors were then repositioned around the acetabulum. Residual labrum was resected and additional osteophytes were removed. A reamer that was 4 mm below the templated size was placed by hand in the acetabulum and it was reamed to centralize the acetabulum. It was then reamed up to 2 under the templated size and fluoroscopy was brought in to confirm the position of the reaming and depth of reaming. I reamed 1 under the anticipated size. A trial cup was placed and noted that it was appropriately sized and fluoroscopy confirmed position and depth. The component was open and inserted without difficulty fluoroscopic imaging was used to confirm that the cup had been adequately seated and was well positioned. It was further stabilized with a single screw. Neutral poly liner was placed. The cup was tested and noted to be stable. Attention was then directed to the femur. The femur was gently hyperextended additional capsular release was performed as needed in order to allow adequate visualization of the proximal femur with elevation of the femur. Patient was placed in a hyperextended slightly adducted position with maximum external rotation. Box osteotome was used to check for any residual neck as well as sclerotic bone along the trochanter. [place] pepper was placed in the femur. Additional broaching was performed. Canal finder was used to determine the alignment of the canal and position. Size 1 broach was placed. The canal was then appropriately broached up to the templated size as long as there was adequate stability of the broach and serial advancement of the broach without excessive impingement. Specific attention was directed at avoiding varus attempting to direct the distal aspect of the broach more anteriorly and avoiding excessive anteversion. Trial reduction showed acceptable range of motion, good stability, no posterior impingement, yarsanism of leg length and appropriate lateral shuck. I also hyperflexed the hip and checked that there was no impingement anteriorly and there was good stability with flexion, adduction and internal rotation. Marcaine and Exparel were injected. The stem was placed without difficulty. Repeat trial reduction and x-ray showed acceptable overall position, length, and no evidence of the femoral fracture. Final head was placed. Wound was meticulously irrigated with normal saline. The hip was reduced and additional Exparel and Marcaine were injected. The capsule was closed with interrupted nonabsorbable sutures. The fascia of the tensor was closed with interrupted and running Vicryl. No drain was placed. Any tensor fascia elen muscle that appeared to be contused or injured which was a minimal amount was carefully resected. Capsule around the tensor was injected with Exparel and Marcaine. The skin was closed with barbed stitches for the subcutaneous tissue and skin. We also used surgical glue. The wound was dressed sterilely. Brief Betadine soak was also used and was meticulously irrigated with normal saline. Patient was transferred to recovery room in satisfactory condition. Complications: none Post-operative Condition: stable Disposition: Acute Care Plan for aftercare: The patient will be maintained on a standard total hip replacement protocol with weight bearing as tolerated and anterior hip precautions. The patient will receive Aspirin and sequential compression devices for DVT prophylaxis. The patient will be discharged home when safe for the home environment.
[2023-08-21] MEDS: CEFAZOLIN 2 GM/100 ML PREMIX 100 ML IV ×2 (13:46→21:20)
[2023-08-21] MEDS: TRANEXAMIC ACID 1,000 MG VIAL 1000 MG INJ ×2 (14:02→15:50)
--- NOTE | 2023-08-21 14:10 | SUR.OPER ---
Supine on padded Ashley table with bilateral legs secured in padded positioning boots and suspended in positioning spars, operative leg in traction per surgeon. Head on one pillow. Arm on non-operative side secured on padded armboard <90 degrees abduction. Arm on operative side padded and resting across chest then secured with tape over sheet. Padded perineal post in place per surgeon.
[2023-08-21] MEDS: BUPIVACAINE 0.25% (PF) 60 ML, EPINEPHrine 0.3 MG INJ (14:30)
[2023-08-21] MEDS: BUPIVACAINE LIPOSOME 266 MG/20 ML VIAL INJ (14:31)
[2023-08-21] MEDS: IBUPROFEN 400 MG TABLET PO ×2 (18:09→21:19)
[2023-08-21] MEDS: LACTATED RINGERS 1,000 ML 100 ML IV (18:10)
[2023-08-21] MEDS: OXYCODONE IR 5 MG TABLET PO (21:01)
[2023-08-21] MEDS: ACETAMINOPHEN 325 MG TABLET 650 MG PO (21:01)
[2023-08-21] MEDS: DOCUSATE 100 MG CAPSULE PO (21:02)
[2023-08-21] MEDS: ASPIRIN EC 81 MG TABLET PO (21:02)
[2023-08-22 00:47] VITALS: BP 121/69; PULSE 64; RESP 16; TEMP 36.6; O2SAT 97
[2023-08-22] MEDS: IBUPROFEN 400 MG TABLET PO ×3 (01:03→09:06)
[2023-08-22 05:17] VITALS: BP 119/69; PULSE 69; RESP 16; TEMP 36.4; O2SAT 98
[2023-08-22] MEDS: CEFAZOLIN 2 GM/100 ML PREMIX 100 ML IV (05:37)
[2023-08-22 06:16] LABS: Hematocrit 32.7 % (36-46); Hemoglobin 10.7 g/dL (12.0-16.0)
--- NOTE | 2023-08-22 07:08 | PM.DS.1 ---
History of Present Illness History of Present Illness Date Patient Seen: 08/22/23 Time Patient Seen: 07:08 Chief complaint: OPB Narrative: Operative Date/Time/Diagnoses Date of procedure: 08/21/23 Time of procedure: 13:40 Pre-op diagnosis: Left hip OA Post-op diagnosis: same Procedure & Clinicians Procedure: Anterior left total hip arthroplasty Same procedure as scheduled: Yes Indications: The patient has had progressively worsening left hip pain with radiographic changes consistent with arthritis. Non-operative management has failed and the patient has requested total hip replacement. The risks, benefits and alternatives to surgery were discussed with the patient prior to proceeding. Risks discussed included, but were not limited to, failure to relieve pain, leg length discrepancy, dislocation, stiffness, infection, nerve damage, deep venous thrombosis, pulmonary embolism, stroke, coma, heart attack, permanent paralysis and , as well as the potential need for eventual revision of the prosthetic. Surgeon: Chika Michael Software Applications Developer: Tori Enriquez Anesthesia Type: General and Spinal Operative Notes Findings: Severe left hip osteoarthritis. Adequate stability, adequate bone Closure Type: primary Specimen(s): none sent Prosthetic devices, grafts, tissues, transplants, or devices: Michael [employer] Nephew 52 mm R3 cup, neutral poly liner, standard offset anthology, 36 by-3 Oxinium head, one 6.5 mm screw Estimated Blood Loss (mL): 250 Blood products transfused: none Discharge Providers Provider Discharge Date: 08/22/23 Primary care physician: Leonides Hines MD Consults: 08/21/23 06:00 Consult to Anesthesiology Routine Comment: Consulting Provider: Anesthesiologist Reason for consultation: Regional block for post operative pain control Has provider been notified: No 08/21/23 17:01 Consult to Discharge Planning Routine Comment: Consult to Occupational Therapy Evaluate & Treat Comment: Physician Instructions: Evaluate and treat Consult to Physical Therapy Evaluate & Treat Comment: Physician Instructions: post op MARIA A protocol Discharge provider: Tori Enriquez PA-C Summary Hospital Course Discharge Diagnosis: Left hip osteoarthritis, s/p left total hip arthroplasty Hospital Course: Ms Michael's hospital course was unremarkable. On the morning of POD# 1, she was feeling well and wanted to go home. She was eating and voiding without difficulty and her pain was well-controlled with oral medication. Exam Vital Signs (past 8 hours): - 08/22/23 00:47 08/22/23 05:17 Temperature 97.9 F 97.5 F L Pulse Rate 64 69 Respiratory Rate 16 16 Blood Pressure 121/69 119/69 Pulse Oximetry 97 98 Oxygen Delivery Method Room Air Oxygen Flow Rate 0 Narrative Exam Narrative: 5/5 strength in hip flexors, quadriceps, hamstrings, DF, PF, EHL on left. Sensation to light touch intact throughout LLE, calf soft and compressible. Aquacel dressing CDI. Objective Labs 08/22/23 05:47 Labs: Laboratory Results - last 24 hr 08/22/23 05:47 Hgb 10.7 L Hct 32.7 L PFSH Medical History Anxiety Panic attacks Depression Rash (02/2021) Osteoarthritis Elevated cholesterol Asthma Surgical History (Updated 08/14/23 @ 10:40 by Nu French RN) History of total right hip replacement (03/29/21) History of 2 sections Social History household members: none Smoking Status: Never smoker alcohol intake: current Discharge Assessment & Plan Assessment and Plan Assessment: Left hip osteoarthritis, s/p left total hip arthroplasty Plan of Treatment: Discharge home after PT if PT agrees, multimodal pain control (pt has rxs at home, outpt PT, f/u in office in 2 weeks as scheduled. Discharge Plan Discharge Plan Patient Disposition: Home Discharge orders & Medications Discharge Orders: Discharge (Order); Ordered 08/22/23 Ordered By: Tori Enriquez Prescriptions: Continued albuterol sulfate 90 mcg/actuation Hfa Aerosol Inhaler 1 - 2 inh INHALATION BEDTIME acetaminophen 325 mg Tablet 650 mg PO TID Qty: 60 0RF aspirin 81 mg Tablet,Delayed Release (Dr/Ec) 81 mg PO BID Qty: 60 0RF docusate sodium 100 mg Capsule 100 mg PO BID Qty: 20 0RF ibuprofen 400 mg Tablet 400 mg PO Q4HR Qty: 60 0RF ondansetron 4 mg Tablet,Disintegrating 4 mg PO Q4HR PRN (Reason: Nausea) Qty: 20 0RF oxycodone 5 mg Tablet 5 mg PO Q3HR PRN (Reason: Pain, Moderate (4-6)) Qty: 60 0RF Follow up/Referrals: Leonides Hines MD [Primary Care Provider] - Chika Michael MD [Physician] - 09/04/23 1:30 pm (Follow up w/ Joel Madrid PA-C, at [facility] office in [place].) Diet/Activity/Treatments Diet: Diet as Tolerated Activity: Weightbearing as tolerated. Anterior hip precautions. Cold/Heat Therapy: Ice to hip as needed for pain. Skin/Wound/Dressing Care Report to your healthcare provider any signs of infection, such as:: chills, fever, night sweats, unusual drainage and unusual redness Dressing: May shower. Leave dressing in place until follow up in office. No bathing or otherwise soaking incision. Call the office if the dressing becomes saturated inside. Visit Report/Discharge Packet Instructions: DI for Hip Replacement, DI for Prescription Opioid Use Stand Alone Forms: Patient Portal/API, Surgery Discharge Discharge Data Primary Care Provider: Leonides Hines Attending Provider: Chika Michael Quality VTE Deep Vein Thrombosis/Pulmonary Embolism Present on Admission: No
[2023-08-22 08:00] VITALS: BP 103/62; PULSE 60; RESP 16; TEMP 36.3; O2SAT 97
[2023-08-22] MEDS: ACETAMINOPHEN 325 MG TABLET 650 MG PO (09:07)
[2023-08-22] MEDS: DOCUSATE 100 MG CAPSULE PO (09:08)
[2023-08-22] MEDS: ASPIRIN EC 81 MG TABLET PO (09:09)
--- NOTE | 2023-08-22 09:18 | CM.DANOTE ---
Initial DCP Assessment Visit Note Reviewed EMR and team rounds for status updates. Met with pt at bedside to introduce self and role, pt was found to be alert/oriented and able to discuss her discharge plan and preferences. Pt resides modified independently in her own home in [place], she has 2-adult dtr's that will be staying with her post-discharge to provide care and assistance in her recovery. Her oldest dtr will be planning to transport her home after lunch today. Payor: Medicare Attending: Dr. Chika Michael Pt is a 67 year-old F post-op day 1 from a L-total hip arthroplasty. She has a hx of worsening bilateral osteoarthritis, had her R-hip arthroplasty on 03/29/21. Pt shares that she ambulates with a cane at baseline, however is otherwise independent. She has already set up her OP PT, and has all of the DME necessary for her home recovery. She denies any further DCP needs/resources at this time. DCP will continue to follow and assist with any further evolving needs during her stay. Discharge Planning/Care Management Advanced directive, confirm from FAMILY Start: 08/21/23 17:15 Freq: Q24H Status: Active Protocol: Document 08/21/23 17:15 MM (Rec: 08/21/23 17:38 MM [id number]) Advance Directive, confirm on record Time 17:38 Person contacted pt Copy received No CM Discharge Assessment Start: 08/22/23 09:14 Freq: Status: Active Protocol: Document 08/22/23 09:15 DPL (Rec: 08/22/23 09:18 DPL [id number]) Discharge Planning Assessment Assigned Coating Machine Feeder KINGS Archuleta Advance Directives? No Advance Directives on File No History Provided By Patient,Medical Record Has Patient been admitted in last 30 No days? Prior Living Arrangements House Household Members none Type of transporation used prior to Drives own vehicle admit Independent with ADL's Yes Is patient alert and oriented? Yes Comment N/A Caregiver for Another No DME Already Rented / Owned Elevated Toilet Seat,FWW / Walker,Cane Patient/Family Preference OP PT Therapy Barriers to Discharge No Discharge Plan Home Transportation Arrangement Two Dtrs available to transport home today Referrals Initiated None needed Whiteboard Updated in Patient Room with Yes name and ext. # of Coating Machine Feeder Review Status In Process Please Provide Date Initial DC 08/22/23 Assessment Was Performed Pre-Anesthesia Assessment Start: 08/14/23 10:39 Freq: Status: Active Protocol: Document 08/14/23 10:39 CAB (Rec: 08/14/23 10:51 CAB [id number]) Pre-Anesthesia Assessment PAC Comment Pt is s/p RT MARIA A 03/19/21. She declined phone assess for upcoming surgery. She reports no changes to medical/ medication history and has no questions/concerns for surgery , chart review only. Patient Information Reviewed Via Chart Review Diagnostic Results BMP/CMP,CBC,EKG,Urinalysis Comment Labs/EKG @ [facility] 06/11/23 Primary Care Provider Leonides Hines Seen Specialist in Last 12 Months Yes Specialist Seen Orthopedist Primary Language Ukrainian Preferred Language Ukrainian Air Traffic Control Supervisor Required No Height 157.48 cm Weight 83.915 kg Body Mass Index (BMI) 33.8 Hearing Ability Hearing Impaired,Use of Hearing Aid Visual Assist Contacts,Glasses Dentition Type Teeth, Natural Present Barriers to Learning Auditory Hx Anesthesia Reactions Yes: Spinal w/ caused shortness of breath Hx Family Anesthesia Reaction Yes: Sister-required intubation w/ Hx Malignant Hyperthermia No Hx Blood Transfusions No Hx Blood Transfusion Reaction No Anesthesia Review Requested No Preventive Medicine Physician No alcohol intake current alcohol intake frequency holidays/special occasions only Smoking Status Never smoker Substance Use Type does not use Pain Present Pain Reported Musculoskeletal Symptoms Abnormal Gait,Back Pain, Difficulty Walking,Joint Pain History of Falling (Recent or History of No ) Patient is completely paralyzed or No completely immobile Prosthesis or Orthotic Device Cane Is patient on oxygen? No Does patient have FERRARI/SOB Yes: r/t Asthma Hx Sleep Apnea No CPAP/BIPAP use not prescribed Currently Taking a Beta Rose No Hx Chest Pain No Hx SOB Yes: r/t Asthma Hx Syncope or Dizziness No Anti-Coagulant Therapy No Has a Windows Server Engineer No Cardiac Testing No Hx Pacemaker/ICD No Pacemaker Rep Required? No Cardiac Clearance Received No Diet Type At Home Regular,Low Carb Dysphagia No Urinary Catheter Present No Hx Urinary Self Catheterization No Diabetes No Patient No Lactating No Hx Drug Resistant Organism No Presence of External or Internal Medical No Devices Received a COVID vaccine? Yes Received all doses? Yes Marital Status Lives With none Current Living Arrangements House Number of Floors (Floors) One Floor Support System Child/Children Patient Discharge Plan Description Return Home Feels Safe in Current Environment Yes Been Physically Hurt or Threatened By a No Person in Current Environment Do you have thoughts of harming yourself None or others? Are you currently considering suicide? No Do you have a plan to hurt yourself or No Plan others? Do You Have Any Spiritual Beliefs That No May Affect Your HC Choices? Do You Have Any Cultural Practices That No May Affect Your HC Choices? Comment Nondenominational Who Can We Speak to About Patient's Care Family, friends Identifying Code for Release of Patient Declines to issue Information Health Care Proxy/Next of Kin Mariann (daughter) Health Care Proxy Emergency Contact Name Steph (daughter) Emergency Contact Advance Directives? No Advance Directives on File No Power of Jack Frame Tender No
--- NOTE | 2023-08-22 09:40 | PT.IIE ---
Current Diagnoses Unilateral primary osteoarthritis, left hip (08/21/23) Surgery Performed Operation Date: 08/21/23 10:45 Actual Procedures p Total Hip Arthroplasty/Anterior Approach(Left) - Chika Michael MD Surgical History (Last Updated 08/14/23 @ 10:40 by Nu French RN) History of 2 sections History of total right hip replacement (03/29/21) Medical History (Last Reviewed 03/30/21 @ 13:52 by Sav Deng PA-C) Anxiety Asthma Depression Elevated cholesterol Osteoarthritis Panic attacks Rash (02/2021) Physical Therapy Inpatient Evaluation/Re-Eval M1 PT/OT-IP Prior Functional Status Start: 08/22/23 10:50 Freq: NEEDED Status: Discharge Protocol: Document 08/22/23 10:51 [facility] (Rec: 08/22/23 11:05 [facility] [id number]) Medical Review Prior Functional Status Communication Independent Mobility and Gait Pt did not use a device. Pt states the pain limited her that she was not able to hike anymore. Activities of Daily Living and IADL's Pt able to do all ADl and IADL needs but had pain. Social History Household Members none Living Arrangements House Number of Floors (Floors) One Floor Number of Stairs To Enter/Railing? 3 step no rails Home Environment Standard Height Toilet,Tub/ Shower Home Equipment Front Wheel Walker,Straight Cane,Raised Toilet Seat w/ Armrests,Shower Seat without Backrest,Hand Held Shower, Agricultural Research Director,Sock Aid,Grab Bars In Shower Additional Social History Comment Pt states has a sock aid but has not been able to find it yet. M1 PT/OT-IP Prior Functional Status Start: 08/22/23 12:54 Freq: NEEDED Status: Active Protocol: Document 08/22/23 09:40 [facility] (Rec: 08/22/23 13:07 AB [id number]) Medical Review Prior Functional Status Medical History Reviewed Yes Communication able to make needs known Mobility and Gait pt stated that she was modified independent with all mobilities and ambulation without AD but occasionally uses her SPC for ambulation depending on hip pain Activities of Daily Living and IADL's per OT note: Pt able to do all ADl and IADL needs but had pain. Social History Household Members none Living Arrangements House Number of Floors (Floors) One Floor Number of Stairs To Enter/Railing? 3 steps R side grab bar Home Environment Standard Height Toilet,Tub/ Shower Home Equipment Front Wheel Walker,Straight Cane,Raised Toilet Seat w/ Armrests,Shower Seat without Backrest,Hand Held Shower, Agricultural Research Director,Sock Aid,Grab Bars In Shower Additional Social History Comment pt's daughter plans to stay with pt for a few days to assist pt M2 PT-IP Current Condition Start: 08/22/23 12:54 Freq: NEEDED Status: Active Protocol: Document 08/22/23 09:40 [facility] (Rec: 08/22/23 13:07 AB [id number]) Physical Therapy Current Condition Current Condition Evaluation Date 08/22/23 Treatment Diagnosis s/p L MARIA A anterior; difficulty in walking Onset Date 08/21/23 M3 PT-IP Subjective Start: 08/22/23 12:54 Freq: NEEDED Status: Active Protocol: Document 08/22/23 09:40 [facility] (Rec: 08/22/23 13:07 AB [id number]) Subjective Physical Therapy Visit Type Type Initial Evaluation Visit Start Time 09:40 Visit Stop Time 10:40 Number of PRESCHOOL PROGRAM DIRECTOR Visits 0 Physical Therapy Visit Comments Patient Comments agreeable to do PT Therapy Pain Assessment Pain When Pain Assessed During Mobility Location Left Hip Intensity 2 Scale Used Numeric (0 - 10) Pain Management Techniques Distraction,Modification of Treatment,Re-positioning, Timing of Activity with Medications M4 PT-IP Mobility and Gait Start: 08/22/23 12:54 Freq: NEEDED Status: Active Protocol: Document 08/22/23 09:40 [facility] (Rec: 08/22/23 13:07 AB [id number]) PT-Bed Mobility Assessment Supine to Sit Supine to Sit Standby Assistance Sit to Supine Sit to Supine Standby Assistance PT-Transfer Assessment Sit to and From Stand Sit to and from Stand Standby Assistance,Contact Guard Assistance,1 Person Assistance,Use of Upper Extremities Equipment Transfer Assistive Device Gait Belt,Front Wheeled Walker Orthotic/Prosthetic Devices or Brace: No Transfers Transfer Destination Chair Transfer Technique ambulated Transfer Ability Level of Assist Standby Assistance,Contact Guard Assistance,1 Person Assistance,Use of Upper Extremities Comments Mobility Comments pt sitting on the chair and agreeable to do PT. pt's daughter in room with pt. obtained PLOF and home set up from pt and daughter. post-op folder provided and reviewed contents. educated pt regarding anterior hip precautions. pt completed sit to stand from the chair CGA and ambulate din room ~ 20 ft using fWW CGA . pt sat on EOB. completed sit <> supine SBA and cues for techniques. pt completed step transfer to chair using FWW SBA. caregiver training conducted. educated pt's daughter on how to use safety belt and how to assist pt. daughter was able to put safety belt on pt and assisted pt with sit to stand. pt ambulated in the hallway using FWW ~ 50 ft with daughter assisting. stair climbing training. educated pt and daughter on how to do stairs using R rail+ SPC. pt completed up/down platform step using R rail + SPC min A and cues. pt repeated x 3 sets and daughter was able to assist pt safely. assisted pt back to her room. pt ambulated from w/c to chair using fWW SBA. positioned pt on the chair. call light and table placed within reach. ice pack provided. pt and daughter without further concerns. Gait Assessment Gait Gait Assistance Required: Standby Assistance,Contact Guard Assist Distance (Feet) 50 Able to Maintain Weight Bearing Status Yes During Gait Assistive Devices Assistive Device Gait Belt,Front Wheeled Walker Orthotic/Prosthetic Devices or Brace: No Gait Deviations General Gait Pattern Decreased Feet Clearance,Step- to Gait Factors Limiting Gait Function Factors Limiting Gait Function Decreased Activity Tolerance, Decreased Strength,Pain,Poor Balance,Poor Safety Awareness Stair Climbing Assessment Evaluation Level of Assist On Stairs Minimal Assistance,1 Person Assistance Devices Stair Climbing Assistive Devices Straight Cane,Right Railing Technique/Endurance Stair Climbing Direction Ascend and Descend Stair Climbing Technique Step to Step Number of Steps Climbed 1 Query Text: Stair Climbing Set # Repetitions (reps) 3 PT-Balance Assessment Sitting Balance and Reactions Static Sitting Balance Ability Normal Dynamic Sitting Balance Ability Good Standing Balance and Reactions Static Standing Balance Ability Fair Dynamic Standing Balance Ability Fair Device Used FWW M5 PT-IP Objective Assessments Start: 08/22/23 12:54 Freq: NEEDED Status: Active Protocol: Document 08/22/23 09:40 [facility] (Rec: 08/22/23 13:07 AB [id number]) Orientation Orientation/Cognition Level of Alertness Alert Orientation Name,Place,Situation Language Function Ability No Deficits Noted Safety Awareness Decreased Safety Awareness Memory Description No Deficits Noted Gross Range of Motion Lower Extremity ROM Assessment Within Functional Limits Strength Lower Extremity Strength Assessment Left Impaired Hip 3-/5 Knee 4-/5 Coordination Assessment Gross Coordination Gross Coordination WNL Sensation Assessment Sensation Gross Sensation WNL Muscle Tone Muscle Tone WNL Yes M6 PT-IP Treatment Start: 08/22/23 12:54 Freq: NEEDED Status: Active Protocol: Document 08/22/23 09:40 [facility] (Rec: 08/22/23 13:07 AB [id number]) Physical Therapy Treatment Education Education Provided Precautions,Weight Bearing Status,Post-Op Packet,Safety M7 PT-IP Assessment and Plan Start: 08/22/23 12:54 Freq: NEEDED Status: Active Protocol: Document 08/22/23 09:40 [facility] (Rec: 08/22/23 13:07 AB [id number]) PT Summary Assessment and Plan Potential Rehabilitation Potential Fair Status of Condition at Evaluation Stable Summary Impairments Pain,ROM,Strength,Balance, Coordination,Sensation,Tone, Cognition,Bed Mobility, Transfers,Gait,Activity Tolerance Assessment Summary pt is a 67 y/o F s/p L MARIA A anterior approach POD 1. pt has L hip anterior precautions and is WBAT. pt requiring SBA to CGA with ambulation and min A for stair climbing using SPC + R rail. caregiver training conducted and pt's daughter was able to assist pt safely. pt may go home when medically stable. Goals Bed Mobility Goal Independent Transfer Goal Independent,Front Wheeled Walker Gait Goal Independent,Front Wheel Walker Gait Distance 200 Other Goals up/down 2 steps R grab bar+ SPC mod I Days to Meet Goals 5 Frequency of Treatment Frequency Of Treatment Twice a Day Treatment Plan Physical Therapy Treatment Plan Bed Mobility Training,Transfer Training,Gait Training, Therapeutic Exercise,Balance Retraining,Post Op Education, Discharge Planning,Hot or Cold Pack,Neuromuscular Re-ed, Coordination Retraining,Manual Therapy Precautions Anterior Hip Precautions No Hip Extension,No Hip External Rotation Weight Bearing Status Weight Bearing Status Weight Bear as Tolerated Allowed Weight Bearing Amount (enter % LLE WBAT or #) (%) Recommendations To Nursing Amount of Assist Needed 1 Person Assist Discharge Recommendations PT Discharge Recommendations Home with Assistance, Outpatient PT Transportation Needs at Discharge Private Vehicle
--- NOTE | 2023-08-22 10:40 | OT.IP.EVAL ---
Addendum entered and electronically signed by Jadyn Colon OT 08/22/23 11:07: esign Original Note: Current Diagnoses Unilateral primary osteoarthritis, left hip (08/21/23) Surgery Performed Operation Date: 08/21/23 10:45 Actual Procedures p Total Hip Arthroplasty/Anterior Approach(Left) - Chika Michael MD Past Medical History (Last Reviewed 03/30/21 @ 13:52 by Sav Deng PA-C) Anxiety Asthma Depression Elevated cholesterol Osteoarthritis Panic attacks Rash (02/2021) Surgical History (Last Updated 08/14/23 @ 10:40 by Nu Frecnh RN) History of 2 sections History of total right hip replacement (03/29/21) Occupational Therapy Inpatient Evaluation/Re-Eval M1 PT/OT-IP Prior Functional Status Start: 08/22/23 10:50 Freq: NEEDED Status: Active Protocol: Document 08/22/23 10:51 [facility] (Rec: 08/22/23 11:05 [facility] [id number]) Medical Review Prior Functional Status Communication Independent Mobility and Gait Pt did not use a device. Pt states the pain limited her that she was not able to hike anymore. Activities of Daily Living and IADL's Pt able to do all ADl and IADL needs but had pain. Social History Household Members none Living Arrangements House Number of Floors (Floors) One Floor Number of Stairs To Enter/Railing? 3 step no rails Home Environment Standard Height Toilet,Tub/ Shower Home Equipment Front Wheel Walker,Straight Cane,Raised Toilet Seat w/ Armrests,Shower Seat without Backrest,Hand Held Shower, Rodding Machine Tender,Sock Aid,Grab Bars In Shower Additional Social History Comment Pt states has a sock aid but has not been able to find it yet. M2 OT-IP Current Condition Start: 08/22/23 10:50 Freq: Status: Active Protocol: Document 08/22/23 10:51 [facility] (Rec: 08/22/23 11:05 [facility] [id number]) Occupational Therapy Current Condition Current Condition Evaluation Date 08/22/23 Treatment Diagnosis S/P L MARIA A Anterior approach Diagnosis Onset Date 08/21/23 M3 OT- IP Subjective and Pain Start: 08/22/23 10:50 Freq: Status: Active Protocol: Document 08/22/23 10:51 [facility] (Rec: 08/22/23 11:05 [facility] [id number]) OT- Subjective Occupational Therapy Visit Type Type Initial Evaluation Visit Start Time 10:35 Visit Stop Time 10:53 Occupational Therapy Visit Comments Patient Comments Pt agreed to get dressed, pt's daughter in the room. Patient/Caregiver Goals TO go home. OT Pain Assessment Pain When Pain Assessed During Mobility Pain Present Pain Present Pain Reported M4 OT- IP ADL's Start: 08/22/23 10:50 Freq: Status: Active Protocol: Document 08/22/23 10:51 [facility] (Rec: 08/22/23 11:05 [facility] [id number]) OT [id number] General Evaluation Self-Feeding Ability Independent OT ADL-Grooming Comments OT Grooming Comments Not performed. OT ADL-Oral Care Comments Oral Care Comments Not performed. OT ADL-Dressing General Eval Upper Body Dressing Ability Independent Lower Body Dressing Ability Moderate Assistance Areas Needing Assistance Pants/Shorts,Socks,Shoes Comments OT Dressing Comments VC to harish her LLE first and take out last. Educated to be mindful of not externally rotate her LLE for ADl and mobility needs. OT ADL-Toileting Comments OT Toileting Comments Suggested may be helpful to wears pads at night so not having to hurry to the bathroom. OT ADL-Bathing Comments OT Bathing Comments Not performed. Educated of care of the bandage while showering . M5 OT- IP IADL's Start: 08/22/23 10:50 Freq: Status: Active Protocol: Document 08/22/23 10:51 [facility] (Rec: 08/22/23 11:05 [facility] [id number]) OT-Instrumental Activities of Daily Living Deficits IADL Deficits Identified Deficits Home Safety Awareness Awareness of Need for Assistance at Home Good Awareness Ability to Problem Solve Emergency Able to Problem Solve Situations Medication Management Medication Management No Deficits Identified Money Management Money Management No Deficits Identified Meal Preparation Meal Preparation Caregiver Provides Assist Senior Auditor Senior Auditor Caregiver Provides Assist M6 OT- IP Functional Cognition Start: 08/22/23 10:50 Freq: Status: Active Protocol: Document 08/22/23 10:51 [facility] (Rec: 08/22/23 11:05 [facility] [id number]) Cognitive Factors Limiting Selfcare Function Cognitive Ability Level of Alertness Alert Patient Orientation Name,Age,Birthday,Month,Date, Year,Day of Week,Place, Situation Attention Span Ability Capable of Focused Attention, Capable of Sustained Attention Ability to Follow Commands Able to Follow One Step Commands Cognitive Comments Cognitive Assessment Comments Pt able to follow her hip precautions during getting dressed. OT- Vision and Hearing OT- Hearing Assessment OT- Hearing Assessment WFL OT- Vision Assessment Visual Acuity Glasses All The Time Visual Attentiveness WFL Occular Pursuits WFL M7 OT- IP Mobility and Balance Start: 08/22/23 10:50 Freq: Status: Active Protocol: Document 08/22/23 10:51 [facility] (Rec: 08/22/23 11:05 [facility] [id number]) OT-Transfer Assessment Sit to and From Stand Sit to and from Stand Contact Guard Assistance Comments Mobility Comments CGA to stand to the FWW while dressing. OT- Balance Assessment Sitting Balance and Reactions Static Sitting Balance Ability Normal Dynamic Sitting Balance Ability Good Standing Balance and Reactions Static Standing Balance Ability Good Dynamic Standing Balance Ability Fair M8 OT- IP Objective Assessments Start: 08/22/23 10:50 Freq: Status: Active Protocol: Document 08/22/23 10:51 [facility] (Rec: 08/22/23 11:05 [facility] [id number]) OT Gross Range of Motion Upper Extremity Range of Motion ROM Impairments WFl for dressing needs. OT Strength Comments Strength Comments WFL for needs. M9 OT- IP Assessment and Plan Start: 08/22/23 10:50 Freq: Status: Active Protocol: Document 08/22/23 10:51 [facility] (Rec: 08/22/23 11:05 [facility] [id number]) OT Summary Assessment and Plan Potential Rehabilitation Potential Excellent Analytic Complexity at Evaluation Low Summary OT Impairments Pain,Strength,Balance, Functional Mobility,Dressing, Toileting,Bathing,Toilet Transfers,Shower Transfers Progress Towards Goals Progressing Toward Goals Assessment Summary Pt low complexity and main barriers are pain,steps and needing occasional reminders to follow her anterior precautions. Pt to go home with her daughter's assist and attend outpt PT. Goals Grooming Goal Independent Dressing Goal Independent,Rodding Machine Tender,Sock Aid Toileting Goal Independent Bathing Goal Standby Assistance Toilet Transfer Goal Independent Shower Transfer Goal Standby Assistance Days to Meet Goals 2 Frequency of Treatment Frequency Of Treatment Once a Day Treatment Plan OT Treatment Plan ADL Training,Functional Mobility,Patient/Family Education,Discharge Planning Discharge Recommendations OT Discharge Recommendations Home with Assistance, Outpatient PT
--- NOTE | 2023-08-22 12:34 | PC.NURSE ---
Discharge: pt agreeable to discharge plan. PT and OT cleared pt. Discharge instructions provided, education provided, IV removed. Pt wheeled via w/c to private vehicle with PCT at approximately 1215
== END 2023-08-22 12:15 | disposition home or self-care (01) ==
LOC: OR 08:37 → AC 08:38
PROVIDERS: Family Provider Family Medicine; PCP Family Medicine; Referring Provider Orthopaedic Surgery; Visit Provider Orthopaedic Surgery
PROC: (CPT 27130; principal; 2023-08-21 10:45)
DX: M16.12 Unilateral primary osteoarthritis, left hip (principal)
CPT/HCPCS: 27130; 36415; 73502; 73503; 76000; 85014; 85018; 97161; 97165; 97530; 97535; C1776; C9290; J0171; J0690; J1100; J2250; J2405; J2704; J3010